=== PATIENT | female | born 1985 | race Caucasian/White ===

== ENCOUNTER 2017-07-16 12:28 | Emergency (ER) | payer BC ==
[2017-07-16] MEDS ORDERED: Ketorolac INJ* 60 MG/2 ML VIAL IM ONE (13:58)
--- NOTE | 2017-07-16 14:15 | RAD ---
Indication: RIGHT knee pain post fall today. Klippel Trenaunay syndrome. Comparison: No relevant prior exams available on the [facility] for comparison. Technique: AP and lateral views RIGHT knee. Report: Moderate suprapatellar joint effusion. Not definitive there is a vertical lucency at the tibial plafond lateral view concerning for a potential nondisplaced fracture. Normal articular alignment. Extensive subcutaneous veins. Indolent pattern of calcification within the hamstring musculature at the level of the distal diaphysis of the femur. Diffuse soft tissue edema. IMPRESSION: Joint effusion and potential although not definitive nondisplaced fracture at the tibial plateau.
[2017-07-16] MEDS ORDERED: oxyCODONE/Acetamin 5/325 MG* TAB PO ONE (14:57)
--- NOTE | 2017-07-16 15:46 | RAD ---
Indication: Potential tibial plateau fracture on radiographs. Klippel-Trenaunay Syndrome. Comparison: Radiographs of the same date. Technique: Noncontrast CT RIGHT knee. Multiplanar reformation. Report: Large joint effusion with lipohemarthrosis. Grossly nondisplaced comminuted tibial plateau fracture involving both the medial and lateral joint compartments. At the lateral joint compartment there is up to 2.5 mm articular surface incongruity due to impaction at the posterior margin. At the medial joint compartment corresponding with the radiographic finding there is 1 mm articular surface discontinuity. Negative for additional fracture. Normal articular alignment accounting for joint effusion with anterior displacement of the patella. Corresponding with known syndrome there are extensive subcutaneous varicose veins. Diffuse skeletal muscle atrophy. IMPRESSION: Grossly nondisplaced comminuted tibial plateau fracture involving both the medial and lateral joint compartments with up to 2.5 mm articular surface incongruity at the lateral joint compartment due to impaction at the posterior margin. Associated large lipohemarthrosis.
[2017-07-16 17:24] VITALS: BP 116/68
--- NOTE | 2017-07-17 10:53 | ED ---
Teri Hannon Edward, scribed for Anuel Mariscal MD on 07/16/17 at 1353 . Lower Extremity - HPI Summary HPI Summary: 31 y/o female presents to the ED c/o immediate onset R knee pain and swelling s/ p slipping on the ice last night. The pain is severe currently. Pt fell on her buttocks while trying to get up as well. - History of Current Complaint Chief Complaint: EDExtremityLower Stated Complaint: RT KNEE INJURY Time Seen by Provider: 07/16/17 13:49 Hx Obtained From: Patient Hx Last Menstrual Period: jan 2008 Mechanism Of Injury: Fall From A Standing Position Pain Intensity: 7 - Allergies/Home Medications Allergies/Adverse Reactions: Allergies Allergy/AdvReac Type Severity Reaction Status Date / Time MS Clindamycin [Clindamycin] Allergy Mild Hives Verified 03/23/17 12:16 PMH/Surg Hx/FS Hx/Imm Hx Previously Healthy: No Endocrine/Hematology History: Reports: Other Endocrine/Hematological Disorders - Klippel-Trenaunay Syndrome ([facility]) Denies: Hx Anticoagulant Therapy, Hx Diabetes, Hx Thyroid Disease Cardiovascular History: Reports: Hx Deep Vein Thrombosis - right leg 2003 Denies: Hx Congestive Heart Failure, Hx Hypertension, Hx Myocardial Infarction, Hx Pacemaker/ICD Respiratory History: Reports: Hx Seasonal Allergies Denies: Hx Asthma, Hx Chronic Obstructive Pulmonary Disease (COPD), Hx Lung Cancer, Hx Pneumonia, Hx Pulmonary Embolism GI History: Reports: Hx Gastroesophageal Reflux Disease Denies: Hx Gall Bladder Disease, Hx Gastrointestinal Bleed, Hx Ulcer, Hx Urosepsis History: Denies: Hx Kidney Stones, Hx Renal Disease Musculoskeletal History: Reports: Other Musculoskeletal History Sensory History: Reports: Hx Contacts or Glasses - contact lenses Denies: Hx Hearing Aid Opthamlomology History: Reports: Hx Contacts or Glasses - contact lenses Neurological History: Reports: Hx Migraine Denies: Hx Dementia, Hx Seizures, Hx Transient Ischemic Attacks (TIA) Psychiatric History: Reports: Hx Anxiety Denies: Hx Depression, Hx Panic Disorder, Hx Schizophrenia, Hx Bipolar Disorder - Surgical History Surgery Procedure, Year, and Place: 30+ vascular surgeries predominantly on right leg, a few on the left upper leg Infectious Disease History: No Infectious Disease History: Denies: History Other Infectious Disease, Traveled Outside the [place] in Last 30 Days - Family History Known Family History: Positive: None Family History: R & n/C - Social History Alcohol Use: None Hx Substance Use: No Substance Use Type: Reports: None Hx Tobacco Use: No Smoking Status (MU): Never Smoked Tobacco Review of Systems Constitutional: Negative Eyes: Negative ENT: Negative Cardiovascular: Negative Respiratory: Negative Gastrointestinal: Negative Genitourinary: Negative Positive: Arthralgia - R knee pain, Edema - R knee Skin: Negative Neurological: Negative Psychological: Normal All Other Systems Reviewed And Are Negative: Yes Physical Exam - Summary Physical Exam Summary: VITAL SIGNS: Reviewed. GENERAL: Patient is a well-developed and nourished female who is lying comfortable in the stretcher. Patient is not in any acute respiratory distress. HEAD AND FACE: No signs of trauma. No ecchymosis, hematomas or skull depressions. No sinus tenderness. EYES: PERRLA, EOMI x 2, No injected conjunctiva, no nystagmus. EARS: Hearing grossly intact. Ear canals and tympanic membranes are within normal limits. MOUTH: Oropharynx within normal limits. NECK: Supple, trachea is midline, no adenopathy, no JVD, no carotid bruit, no c- spine tenderness, neck with full ROM. CHEST: Symmetric, no tenderness at palpation LUNGS: Clear to auscultation bilaterally. No wheezing or crackles. CVS: Regular rate and rhythm, S1 and S2 present, no murmurs or gallops appreciated. ABDOMEN: Soft, non-tender. No signs of distention. No rebound no guarding, and no masses palpated. Bowel sounds are normal. EXTREMITIES: Swelling and tenderness at R knee. Draw test positive. NEURO: Alert and oriented x 3. No acute neurological deficits. Speech is normal and follows commands. SKIN: Dry and warm Triage Information Reviewed: Yes Vital Signs On Initial Exam: Initial Vitals Temp Pulse Resp BP Pulse Ox 97.3 F 103 16 103/81 100 07/16/17 12:31 07/16/17 12:31 07/16/17 12:31 07/16/17 12:31 07/16/17 12:31 Vital Signs Reviewed: Yes Diagnostics - Vital Signs Vital Signs Temp Pulse Resp BP Pulse Ox 07/16/17 12:31 97.3 F 103 16 103/81 100 - Laboratory Lab Statement: Any lab studies that have been ordered have been reviewed, and results considered in the medical decision making process. - Radiology KNEE XR Xray Interpretation: Positive (See Comments) - Joint effusion and potential although not definitive nondisplaced fracture at the tibial plateau. Radiology Interpretation Completed By: Radiologist - ED PHYSICIAN REVIEWS AND AGREES - CT LOWER EXTREMITY CT CT Interpretation: Positive (See Comments) - Grossly nondisplaced comminuted tibial plateau fracture involving both the medial and lateral joint compartments with up to 2.5 mm articular surface incongruity at the lateral joint compartment due to impaction at the posterior margin. Associated large lipohemarthrosis. CT Interpretation Completed By: Radiologist Lower Extremity Course/Dx - Course Assessment/Plan: 31 y/o female presents to the ED c/o immediate onset R knee pain and swelling s/p slipping on the ice last night. The pain is severe currently. Pt fell on her buttocks while trying to get up as well. KNEE XR SHOWS Joint effusion and potential although not definitive nondisplaced fracture at the tibial plateau. There is no positive fracture after xr, only suspect fracture, so we did a ct. Pt was given Toradol and Percocet for the pain. Placed in a knee immobilizer and given crutches. I discussed the case with Dr. Rodney who recommended we place the pt in a knee immobilizer and f/u with his office on Monday. Pt agrees with plan, is hemodynamically stable and A &Ox3. - Diagnoses Provider Diagnoses: Tibial plateau fracture Discharge - Discharge Plan Condition: Stable Disposition: HOME Patient Education Materials: Knee Pain (ED) Referrals: Isidro Marks NP [Primary Care Provider] - Hao Rodney MD [Medical Doctor] - 1 Day (PLEASE F/U TOMORROW) The documentation as recorded by the Teri vital Edward accurately reflects the service I personally performed and the decisions made by me, Anuel Mariscal MD.
== END 2017-07-16 17:24 | disposition home or self-care (01) ==
LOC: ED 12:28
DX: S82.141A Displaced bicondylar fracture of right tibia, initial encounter for closed fracture (principal); W01.0XXA Fall on same level from slipping, tripping and stumbling without subsequent striking against object, initial encounter; Y92.9 Unspecified place or not applicable
CPT/HCPCS: 96372; 99282; A9270-GY; J1885